=== PATIENT | female | born 1965 | race Caucasian/White ===

== ENCOUNTER 2017-06-08 00:44 | Inpatient (IN) | payer OTHER ==
[~2017-06-08] VITALS: Ht 172.7 cm; Wt 79.4 kg
--- NOTE | ~2017-06-08 | ER ---
PATIENT'S NAME: VALERIO HERRERA [facility] AGE: 51 Y [address] ROOM: [place] [address] LOCATION: [employer] ADMIT DATE: 06/08/2017 ER/Outpatient Report DISCHARGE DATE: FAMILY PHYSICIAN: PHYSICIAN, NO ATTENDING PHYSICIAN: Brayan Fields HISTORY OF PRESENT ILLNESS: This patient is a 51-year-old female, who was up at [facility] to detox. They do not detox, so she was sent here to the emergency department to be admitted for alcohol detox and further evaluation treatment as needed. Dr. Geller, hospitalist was here in the emergency room and saw the patient and admitted the patient to hospital. I did not see the patient, but did order medical clearance, lab studies. Also ordered IV banana bag 1 L in the emergency department, then normal saline at 150 mL an hour. Zofran 4 mg IV in the emergency room for nausea and vomiting. Protonix 40 mg IV in the emergency room. The patient will be admitted to the hospital for alcohol detox. IMPRESSION: 1. Acute alcohol intoxication and alcohol abuse. 2. Suicidal ideation. 3. Palpitations. 4. Anxiety, depression, sadness. MD AL CARDENAS/modl /[id number] d: 06/08/17131 t: 06/08/17 1809, OUTPATIENT REPORT
--- NOTE | ~2017-06-08 | HP ---
[facility] AGE[facility] 51 Y [address] ROOM: [place] [address] LOCATION: [facility]PCU ADMIT DATE: 06/08/2017 History & Physical DISCHARGE DATE: FAMILY PHYSICIAN: PHYSICIAN, NO ATTENDING PHYSICIAN: SID HERNANDEZ DATE OF SERVICE: CHIEF COMPLAINT: Alcohol intoxication. HISTORY OF PRESENT ILLNESS: A 51-year-old lady with a past medical history of heavy alcohol abuse, had been sober for 3 years, relapsed 3 weeks ago and had been drinking 1 pint of [place] since then. She presented to [facility] to seek help and she was found to be acutely alcohol intoxicated and she was transferred here for further care. On my encounter, her mood is very labile. She is saying that she wanted to quit and she is afraid that she will go into bad withdrawal. She does not complain of any suicidal ideation, but she said that she is sad. She does not have any chest pain, any shortness of breath, any headache, trouble breathing, any trouble swallowing, abdominal pain, burning on urination, constipation, diarrhea, PND, orthopnea. REVIEW OF SYSTEMS: All other systems reviewed and were negative except what is mentioned in the HPI. ALLERGIES: NO KNOWN DRUG ALLERGIES. PAST MEDICAL HISTORY: Hypertension. HOME MEDICATIONS: Lisinopril. SOCIAL HISTORY: Heavy alcohol use. One pint of [place] for the last 3 weeks. FAMILY HISTORY: Negative for coronary artery disease or diabetes. PHYSICAL EXAMINATION: VITAL SIGNS: Blood pressure 126/77, saturating 93%, afebrile. GENERAL: In mild acute distress due to labile mood. Alert and oriented x3. PATIENT'S NAME: JAVIER [facility] AGE: 51 Y [address] ROOM: [place] [address] LOCATION: GPCU ADMIT DATE: 06/08/2017 History & Physical DISCHARGE DATE: FAMILY PHYSICIAN: PHYSICIAN, NO ATTENDING PHYSICIAN: SID HERNANDEZ HEENT: Head atraumatic, normocephalic. Eyes: Nonicteric. No pallor. Oropharynx moist mucous membranes. CARDIOVASCULAR: S1 and S2. No murmurs, gallops, or rubs. LUNGS: Clear to auscultation bilaterally. ABDOMEN: Soft, nontender, nondistended. Bowel sounds present. EXTREMITIES: No clubbing, cyanosis, or edema. PSYCH: Labile mood and speech. NEUROLOGIC: Cranial nerves II through XII intact. No motor or sensory deficit. MUSCULOSKELETAL: No muscle tenderness or joint swelling noted. LABORATORY DATA: Lab work done in the emergency department was impressive for low potassium which was 2.3 and a creatinine of 1.3. Bicarb was also elevated at 33. Urinalysis showed positive leukocytes and positive white count. ASSESSMENT AND PLAN: 1. Alcohol intoxication. 2. Acute kidney injury. 3. Hypokalemia. 4. Elevated liver enzymes. We are going to admit this lady. Provide her with intravenous fluids with multivitamins. Provide supportive care. Watch for withdrawal. Replace potassium. Monitor creatinine which appears to be prerenal. Urine is suggestive of acute cystitis, but she does not have any complaints at this point, so we will just watch for now. She wishes to be DNR/DNI. MD CELIA ROSENBERG/willian /[id number] D: [id number] T: [id number] HISTORY & PHYSICAL
--- NOTE | ~2017-06-08 | DS ---
PATIENT'S NAME: VALERIO HERRERA [facility] AGE: 51 Y [address] ROOM: [id number] [place], [place] [address] LOCATION: GPCU ADMIT DATE: 06/08/2017 Discharge Summary DISCHARGE DATE: 06/11/2017 FAMILY PHYSICIAN: PHYSICIAN, NO ATTENDING PHYSICIAN: Miroslava Geller ADDENDUM: BRIEF HISTORY: The patient was unable to go home yesterday because of inability to pay for her scripts, she became emotionally labile, and she was tachycardiac to about 110 to 120. I felt that she would not do well if she went home last night. she said she has eaten today, we will replace her potassium after she had a level of 3.1 this morning with K-Dur 40 mEq x2 tablets, magnesium 400 mg p.o., and Neutra-Phos packet. Her phosphorus was still somewhat low at 2.1. MEDICATIONS: 1. Multiple vitamin 1 tab daily. 2. Thiamine 100 mg p.o. daily. 3. Ativan 1 mg p.o. every 8 hours p.r.n. anxiety or withdrawal. 4. Amlodipine 2.5 mg p.o. q.h.s. 5. Folic acid 1 mg p.o. daily. 6. Lisinopril 20 mg p.o. daily. 7. Magnesium oxide 40 mg p.o. b.i.d. I have reviewed her meds with her and told her to prioritize her expenses. She will follow up with her sponsor and PCP as per prior dictation. she is in good condition at this time, less than 30 minutes spent on discharge process today. TAL BARBOSA MD LM/willian /[id number] d: 06/12/17130 t: 06/14/17 185, DISCHARGE SUMMARY
--- NOTE | ~2017-06-08 | DS ---
PATIENT'S NAME: VALERIO MILLER [facility] AGE: 51 Y [address] ROOM: [place] [address] LOCATION: GPCU ADMIT DATE: 06/08/2017 Discharge Summary DISCHARGE DATE: 06/10/2017 FAMILY PHYSICIAN: PHYSICIAN, NO ATTENDING PHYSICIAN: Miroslava Geller PRINCIPAL DISCHARGE DIAGNOSIS: Alcohol intoxication. SECONDARY DIAGNOSES: 1. Alcohol withdrawal. 2. Hypokalemia. 3. Hypophosphatemia. 4. Hypertension. 5. Elevated liver enzymes. CONSULTATIONS: None. COMPLICATIONS: None. PROCEDURES: None. BRIEF HISTORY: Ms. Miller is a 51-year-old female who presented to [facility] on the for acute care and she was noted to be intoxicated. She was referred to the emergency room for acute care here. In the emergency room, she was found to have labile mood seeking care for potential withdrawal of alcohol. She denied suicidal ideation on admission, but did admit to some sadness. She was admitted for further evaluation and management of acute alcohol intoxication and potential withdrawal. She was monitored with CIWA protocol and given Ativan. She last received Ativan at 11:30 last night and this was given last IV around 3 o'clock yesterday. She has had CIWA score low enough not to require any Ativan all day, but she just looked a little bit anxious now and I am going to give her a dose of p.o. Ativan now. She had a low phosphorus with low potassium earlier today, which has been repleted with IV K-Phos and she is ambulating better and she has eaten twice today. She believes she will be stable if she goes home now, she has support at home and she is able to eat. She told me of her plan to attend daily AA meetings and go to counseling at [facility] and to have close contact with her AA sponsor. She does have hypertension. She has been treated with an MO inhibitor. Blood pressure was still high earlier today. I will start her on amlodipine. PATIENT'S NAME: VALERIO MILLER [facility] AGE: 51 Y [address] ROOM: [place] [address] LOCATION: GPCU ADMIT DATE: 06/08/2017 Discharge Summary DISCHARGE DATE: 06/10/2017 FAMILY PHYSICIAN: PHYSICIAN, NO ATTENDING PHYSICIAN: Miroslava Geller INSTRUCTIONS AT DISCHARGE: She was instructed to eat at least 4 ounces of protein 4 times a day. She should see her PCP within three days, [facility] Exercise as tolerated yet, but I am recommending she walk 30 minutes a day to help with her underlying anxiety disorder. MEDICATIONS AT THE TIME OF DISCHARGE: 1. Pepcid 20 mg p.o. twice daily. 2. Folic acid 1 mg p.o. daily. 3. Lisinopril 20 mg p.o. daily. 4. Magnesium oxide 400 mg p.o. twice a day. 5. Multiple vitamin 1 p.o. daily. 6. Thiamin 100 mg p.o. daily. 7. Ativan 1 mg p.o. every 8 hours p.r.n. withdrawal or anxiety. I am giving her a script for 20 pills and no refill. 8. Amlodipine 2.5 mg one p.o. every bedtime for hypertension. CONDITION AT DISCHARGE: Fair. TIME SPENT: Greater than 30 minutes in the discharge process. TAL BARBOSA MD LM/willian /[id number] d: 06/11/17 0200 t: 06/14/17 1848, DISCHARGE SUMMARY
[2017-06-08 01:24] LABS: BASOPHIL % 0.8 %; EOSINOPHIL # 0.1 K/uL (0.0-0.5); EOSINOPHIL % 1.4 %; HEMATOCRIT 37.8 % (33.0-46.0); HEMOGLOBIN 13.6 g/dL (10.0-15.0); IMMATURE GRANULOCYTE % 0.4 %; LYMPHOCYTE # 2.8 K/uL (0.8-4.0); LYMPHOCYTE % 58.3 %; MCH 34.9 pg (27.0-34.0); MCV 96.9 fl (83.0-98.0); MONOCYTE # 0.6 K/uL (0.0-1.0); MPV 8.3 fl (9.4-12.4); NEUTROPHIL # (ANC) 1.3 K/uL (1.8-7.8); NEUTROPHIL % 27.1 %; NRBC % 0 /100WBC (0-0.00); PLATELET COUNT 118 K/uL (150-450); RDW-CV 14.4 % (11.9-14.6); WBC 4.8 K/uL (4.0-11.0)
[2017-06-08 01:25] LABS: BILIRUBIN URINE NEGATIVE (NEGATIVE); BLOOD URINE 150 /UL (NEGATIVE); COLOR URINE YELLOW (YELLOW); GLUCOSE URINE NEGATIVE (NEGATIVE); KETONE URINE NEGATIVE (NEGATIVE); LEUKOCYTES URINE 100 /UL (NEGATIVE); NITRITE URINE NEGATIVE (NEGATIVE); PROTEIN URINE 100 mg/dL (NEGATIVE); SPEC GRAVITY URINE 1.015 (1.003-1.035); TURBIDITY URINE 3+ (CLEAR); UROBILINOGEN URINE 1 mg/dL (NORMAL)
[2017-06-08 01:35] LABS: BACTERIA URINE MANY (NEGATIVE); HYALINE CAST URINE 0-2 #/LPF (NEGATIVE)
[2017-06-08 01:41] LABS: AMPHETAMINE NEGATIVE (NEGATIVE); BARBITURATE NEGATIVE (NEGATIVE); COCAINE NEGATIVE (NEGATIVE); OPIATES NEGATIVE (NEGATIVE)
[2017-06-08 01:45] LABS: ALBUMIN 3.2 gm/dL (3.5-5.0); ALK PHOS 68 IU/L (33-138); ALT 54 IU/L (12-78); AST 106 IU/L (10-40); BLOOD UREA NITROGEN 9 mg/dL (6-24); CALCIUM 8.1 mg/dL (8.5-10.5); CHLORIDE 93 mMol/L (96-110); CO2 33 mMol/L (22-32); CREATININE 1.3 mg/dL (0.5-1.1); SODIUM 140 mMol/L (135-145); TOTAL BILIRUBIN 0.5 mg/dL (0.0-1.5); TOTAL PROTEIN 7.4 g/dL (6.0-8.4)
[2017-06-08 01:46] LABS: ANION GAP 16.3 (10.0-19.0)
[2017-06-08 01:48] LABS: POTASSIUM 2.3 mMol/L (3.7-5.1)
[2017-06-08] MEDS ORDERED: PRINIVIL (ZESTR20 MG PO (03:14)
[2017-06-08 04:46] LABS: HEMATOCRIT 33.6 % (33.0-46.0); HEMOGLOBIN 11.8 g/dL (10.0-15.0); MCH 34.7 pg (27.0-34.0); MCHC 35.1 gm/dL (32.0-36.5); MCV 98.8 fl (83.0-98.0); MPV 8.8 fl (9.4-12.4); RBC 3.4 M/uL (3.50-5.50); RDW-CV 14.6 % (11.9-14.6); WBC 4.5 K/uL (4.0-11.0)
[2017-06-08 04:57] LABS: ANION GAP 17.7 (10.0-19.0); CALCIUM 7.5 mg/dL (8.5-10.5); CREATININE 0.9 mg/dL (0.5-1.1); PHOSPHORUS 3.1 mg/dL (2.5-4.9)
[2017-06-08 04:59] LABS: POTASSIUM 2.7 mMol/L (3.7-5.1)
--- NOTE | 2017-06-08 05:15 | NUR ---
Patient arrived to floor at 0305 from ER. Patient's daughter had brought her mother to [facility] for alcohol detoxing, and subsequently brought to our ER. VSS on admission. 1L O2, NS infusing to R)AC. Patient is A/O x3. Moderatly anxious and states she is beginning to have numbness to fingers from the withdrawal. States depression with suicidal thoughts, MD is aware. Patient has recently began drinking 1 pint of whiskey/daily for 2 weeks. Very worried that she cannot stop drinking. 1 mg Ativan given. Monitoring CIWA score. Stable at this time.
--- NOTE | 2017-06-08 16:50 | NUR ---
Significant Event: A/OX3, VSS ON 1L PER NC. PT. VERY SLEEPY THROUGHOUT SHIFT AND HAS SLEPT MOST OF IT, WILL WAKE UP WHEN ASSESSED. CIWA SCORES HAVE BEEN 7 TO 12, 1mg OF ATIVAN GIVEN @ EACH ASSESSMENT EXCEPT FOR LAST ASSESSMENT 2mg WAS GIVEN FOR A CIWA SCORE OF 12, REASSESSMENT 1HR LATER CIWA WAS DOWN TO A 7. PT. GETS UP 1 ASSIST TO BATHROOM, VERY UNSTEADY & DIZZY AT TIMES. NO PAIN. IV TO R)AC HAS NS @ 150mL/HR. PT. HAS TAKEN ALL PO MEDS TODAY, STARTED ON HOME DOSE OF LISINOPRIL. 60meq OF KCL GIVEN TODAY D/T K+ LEVEL OF 2.7, RECHECK 1HR POST MED WAS 3.2, GAVE ADDITIONAL DOSE OF 60meq PER ORDER. PT. HAS NO SUICIDAL THOUGHTS. Follow up: CONTINUE WITH POC.
[2017-06-09 05:25] LABS: BASOPHIL % 0.8 %; EOSINOPHIL # 0.2 K/uL (0.0-0.5); EOSINOPHIL % 5.3 %; HEMATOCRIT 31.7 % (33.0-46.0); HEMOGLOBIN 10.9 g/dL (10.0-15.0); IMMATURE GRANULOCYTE % 0.3 %; LYMPHOCYTE # 1.2 K/uL (0.8-4.0); LYMPHOCYTE % 32.4 %; MCH 34.5 pg (27.0-34.0); MCHC 34.4 gm/dL (32.0-36.5); MCV 100.3 fl (83.0-98.0); MONOCYTE # 0.4 K/uL (0.0-1.0); MONOCYTE % 10.8 %; MPV 8.5 fl (9.4-12.4); NEUTROPHIL # (ANC) 1.9 K/uL (1.8-7.8); NEUTROPHIL % 50.4 %; NRBC % 0 /100WBC (0-0.00); PLATELET COUNT 71 K/uL (150-450); RBC 3.16 M/uL (3.50-5.50); RDW-CV 14.2 % (11.9-14.6); WBC 3.8 K/uL (4.0-11.0)
[2017-06-09 05:42] LABS: MAGNESIUM 1.5 mg/dL (1.8-2.6)
[2017-06-09 05:43] LABS: ALBUMIN 2.5 gm/dL (3.5-5.0); ALK PHOS 51 IU/L (33-138); ALT 37 IU/L (12-78); ANION GAP 11.4 (10.0-19.0); AST 54 IU/L (10-40); BLOOD UREA NITROGEN 7 mg/dL (6-24); CHLORIDE 108 mMol/L (96-110); CO2 25 mMol/L (22-32); CREATININE 0.6 mg/dL (0.5-1.1); POTASSIUM 3.4 mMol/L (3.7-5.1); SODIUM 141 mMol/L (135-145); TOTAL PROTEIN 5.7 g/dL (6.0-8.4)
[2017-06-09 05:45] LABS: CALCIUM 6.7 mg/dL (8.5-10.5); TOTAL BILIRUBIN 1.1 mg/dL (0.0-1.5)
--- NOTE | 2017-06-09 05:45 | NUR ---
SIGNIFICANT EVENT: A/O X 3. UP TO BATHROOM WITH 1 ASSIST. PATIENT HAS BEEN PRETTY TEARY TONIGHT AND VERY ANXIOUS. CWA SCORES OF 12-16 ALL NOC. ATIVAN IV GIVEN X 3 WITH THE LAST DOSE AT 0315 AND PO 1 MG X 1. VSS ON RA WITH SATS IN THE 90'S.
--- NOTE | 2017-06-09 16:04 | NUR ---
Significant Event: A/OX3, VSS ON RA. PT. GETS UP SBA TO BATHROOM, MOVING MUCH BETTER TODAY. PT. TEARFUL AND CRYING A BIT ON/OFF THROUGHOUT SHIFT, CALLED DAUGHTER WITH NO ANSWER. PT. JUST WANTS DETOX TO BE OVER. PO/IV ATIVAN GIVEN X4, CIWA SCORES HAVE BEEN FROM 9-13 THROUGHOUT DAY. PT. SLEEPS MOST OF SHIFT, EAR PLUGS IN. R)AC HAS NS @ 150mL/HR. ATE BREAKFAST BUT NO LUNCH. 40mmol OF NA-PHOS GIVEN X1, 2gm OF MAG SULFATE GIVEN X1. POSSIBLE D/C TO HOME IN AM. Follow up: CONTINUE WITH POC.
--- NOTE | 2017-06-10 05:14 | NUR ---
Significant event: A/O x 3. Up with SBA to the bathroom. CWA score 16-5 gave ativan x 2 last at 2200. showered and ate Dinner last night. She states she would like to go home today. No c/o pain throughout shift. Follow-up: possile discharge home
--- NOTE | 2017-06-10 10:57 | NUR ---
Introduced self and CM role to Vero. Vero tells me that she just recently moved here to [place] and lives alone, but has good support from her daughter. She plans on returning home when she is ready to dismiss. Vero goes to the [facility] here in [place] to be seen for any of her medical needs. She says she is usually seen by Guerita Del Cid at the clinic. She is only on one medication at home for her BP and she gets that filled at [facility] as it is on the $4 Medication list. She denies having any issues filling her medications. She is listed as self pay, I did give her the financial assistance application to fill out once she has been dismissed. We talked about her issues when it came to her alcoholism. She does admit to having a problem. Currently attends AA Meetings here in [place] on a weekly basis at 1200 at the [facility]. She also has a sponsor, Cathi, who she turns to for a lot of support and sees' on a regular basis. I did provide her with a list of resources for her alcohol issues. Denies wanting a CD eval or wanting to go to inpatient alcohol treatment of any kind. Offered to make her a counseling appt. for her to see someone upon dismissal but she denied wanting this stating,"I will just follow up with Cathi and continue to do my AA meetings, I don't want to see a counselor at this point, but I will refer back to what you gave me if I change my mind." Denies any other questions, needs or concerns at this time. Plan is home upon dismissal. States that her daughter or someone will be able to pick her up when she goes home. She is hoping to go home today. CM to continue to follow and assist.
[2017-06-10 12:01] LABS: ANION GAP 13.1 (10.0-19.0); CHLORIDE 110 mMol/L (96-110); CO2 20 mMol/L (22-32); CREATININE 0.6 mg/dL (0.5-1.1); MAGNESIUM 1.5 mg/dL (1.8-2.6); POTASSIUM 3.1 mMol/L (3.7-5.1); SODIUM 140 mMol/L (135-145)
[2017-06-10 12:06] LABS: BLOOD UREA NITROGEN 3 mg/dL (6-24); CALCIUM 6.9 mg/dL (8.5-10.5); PHOSPHORUS 1.6 mg/dL (2.5-4.9)
--- NOTE | 2017-06-10 16:42 | NUR ---
Significant Event: A/OX3, VSS ON RA. NO PAIN. CIWA SCORES HAVE BEEN 2-5 ALL DAY. 2gm OF MAG & 30mmoL OF K-PHOS GIVEN TODAY X1. IV TO R)AC. PT. ATE ALL OF LUNCH. UP SBA TO BATHROOM. PT. TO DISMISS TO HOME LATER WHEN K-PHOS IS DONE AND COMES BACK AROUND. Follow up: CONTINUE WITH POC.
[2017-06-11 03:46] LABS: ALBUMIN 2.9 gm/dL (3.5-5.0); ANION GAP 11.1 (10.0-19.0); BLOOD UREA NITROGEN 3 mg/dL (6-24); CALCIUM 7.7 mg/dL (8.5-10.5); CHLORIDE 109 mMol/L (96-110); CO2 24 mMol/L (22-32); CREATININE 0.6 mg/dL (0.5-1.1); PHOSPHORUS 2.1 mg/dL (2.5-4.9); POTASSIUM 3.1 mMol/L (3.7-5.1); SODIUM 141 mMol/L (135-145)
--- NOTE | 2017-06-11 04:41 | NUR ---
Kylee&Tasneem3. GABE 16 @ 0300. GAVE 2MG IV ATIVAN. IV TO R) WHIT SL. WAS SUPPOSED TO D/C 06/10 HS BUT COULD NOT PAY FOR MEDS AT PHARMACY. CARE MANAGEMENT TO SEE TODAY AND THEN DISMISS TO HOME. REPORTS NO APPETITE. UP 1A TO BATHROOM.
--- NOTE | 2017-06-11 11:40 | NUR ---
Consult from to see Vero as she couldn't pay for her medications upon dismissal. I reviewed her discharge medications, most of them were over the counter medications so we wouldn't pay for those. The ones at weren't OTC could be found at [facility]. I phoned the [facility], talked with Meri. Per Meri, Garrick' Lisinopril 10 MG was $4.00, Amlodipine 2.5 MG was $20.14, and the Lorazapam 1 mg was $9.47, total for cost of medications was under $34.00. Went into her room and talked with her about his. Let her know that I had no funds to pay for her medications, encouraged her to see if her daughter could help her cover the costs this time or if she had another friend that might be able to loan her the medications. She says that she will ask them and see and thinks that they will probably be able to do that. I questioned her on how she pays for her rent or her alcohol when she isn't in here as she says she has no money. She says she has some saved up and has enough to pay for "those things". Encouraged her to try to cover the cost of her medications herself or have her daughter help her. She is also supposed to follow up with her provider at the [facility] within 3 days of dismissing to I encouraged her to ask them if they had any free medications they could give her. She states she will do this. CM to continue to follow and assist.
--- NOTE | 2017-06-11 16:01 | NUR ---
Significant Event: PT A&O x3. VSS, on room air. PT sleepy t/o shift, stated she didn't sleep good last night. Tolerating regular diet. Ativan given x1 per PT request, stating she was anxious. PT up ad kathleen in room. Voiding without difficulties. Follow up: DC to home katie
[2017-06-11] MEDS ORDERED: FOLIC ACID1 MG PO (17:24)
[2017-06-11] MEDS ORDERED: MAG-OX-400(241400 MG PO (17:25)
[2017-06-11] MEDS ORDERED: THERAGRAN-M1 TAB PO (17:27)
[2017-06-11] MEDS ORDERED: THIAMINE HCL100 MG PO (17:28)
[2017-06-11] MEDS ORDERED: ATIVAN 1 MG1 MG PO (17:29)
[2017-06-11] MEDS ORDERED: NORVASC2.5 MG PO (17:31)
== END 2017-06-11 18:15 | disposition disaster alternative care site (69) | DRG 683 ==
LOC: GMED 00:44 → GPCU 02:05
PROVIDERS: Emergency Medicine; Family Medicine; Internal Medicine; ADMIT Internal Medicine
DX: N17.9 Acute kidney failure, unspecified (principal); F10.239 Alcohol dependence with withdrawal, unspecified; E83.39 Other disorders of phosphorus metabolism; I10 Essential (primary) hypertension; E87.6 Hypokalemia; R74.8 Abnormal levels of other serum enzymes; Z66 Do not resuscitate
CPT/HCPCS: C9113; G0480; J2060; J2405; J3411; J3475; J7030; J7050

== ENCOUNTER 2017-07-14 11:45 | Emergency (ER) | payer SELFPAY ==
--- NOTE | ~2017-07-14 | ER ---
PATIENT'S NAME: VALERIO HERRERA [facility] AGE: 51 Y [address] ROOM: [place] [address] LOCATION: ED ADMIT DATE: 07/14/2017 ER/Outpatient Report DISCHARGE DATE: 07/14/2017 FAMILY PHYSICIAN: PHYSICIAN, NO ATTENDING PHYSICIAN: Brayan Fields Time of Arrival: 1147 hours. Time of Exam: 1147 hours. CHIEF COMPLAINT: Alcohol withdrawal. HISTORY OF PRESENT ILLNESS: The patient states that she has had problems with alcoholism for the last month. She was here in the hospital a month ago for withdrawal. She states she feels like she has her life back in order, however, whenever she does not drink, then she has problems with shakes and weakness and not able to walk. She states on Saturday she started to wean herself off the alcohol. She had really a bad day Saturday where she just shook and could hardly get out of bed because she was so weak. Saturday, she did drink a shot of hard alcohol and that did help. She states that she has had approximately half a pint of alcohol per day on a regular basis. Drinks primarily vodka, last drink today at 10 o'clock. She also is concerned because she feels chills and has a rapid heart rate. Has not been nauseated. No vomiting. No problems urinating. Having normal bowel movements. Denies having any chest pain or shortness of breath. ALLERGIES: PENICILLIN. CURRENT MEDICATIONS: Lisinopril. PAST MEDICAL HISTORY: Hypertension and chronic back problems. PAST SURGERIES: Back surgery. SOCIAL HISTORY: She denies use of tobacco or drugs, but does drink vodka on a daily basis. REVIEW OF SYSTEMS: All negative other than those mentioned in the HPI. PATIENT'S NAME: VALERIO HERRERA [facility] AGE: 51 Y [address] ROOM: [place] [address] LOCATION: ED ADMIT DATE: 07/14/2017 ER/Outpatient Report DISCHARGE DATE: 07/14/2017 FAMILY PHYSICIAN: PHYSICIAN, NO ATTENDING PHYSICIAN: Brayan Fields PHYSICAL EXAMINATION: VITAL SIGNS: She weighed 75.4 kg. Blood pressure is 128/79, pulse of 87, respirations 18, temperature of 96.2 tympanic, and O2 saturation is 97% on room air. GENERAL: She is awake, alert, and oriented x4. SKIN: [place], warm, and dry. RESPIRATIONS: Even and nonlabored. HEENT: Pupils are equal and reactive to light. Extraocular movements are intact. LUNGS: Lung sounds are clear throughout. HEART: Regular rate and rhythm. ABDOMEN: Soft, nondistended. Bowel sounds are present. She moves all extremities strongly and equally. EMERGENCY ROOM COURSE: Saline lock was initiated. Lab work was drawn. CBC is within normal limits. Chem Panel: Sodium is 138, potassium is 2.3, chloride is 97, glucose is 96, BUN is 11, creatinine of 1. Her magnesium was 1.2. CPK is 355, CK-MB is 1.1, and troponin is negative. Tylenol level is negative. Salicylate level is negative. Alcohol is 0.112. EKG was completed, it shows a sinus rhythm. The patient was given lorazepam 1 mg IV. A banana bag with 40 mEq of KCl was initiated to infuse over 4 hours. She was also given 40 mEq of KCl orally. Monitor showed sinus rhythm throughout the ER stay. No ectopy is noted. Discussed with the patient the need to stay in the hospital for rechecking of her potassium to make sure that it has continued to improve. She states that she does not feel as though she can stay at this time. She has commitments at home with family and is scheduled to go to tomorrow morning and has a job interview. She says she does have an appointment with Colin Casey on Saturday to talk with Magali Holland. Again, I reiterated the importance of monitoring her heart. IMPRESSION: Hypokalemia due to EtOH abuse. PLAN: The patient refuses to be hospitalized. AMA form is completed. Instructions were reviewed with the patient. She was given a prescription for potassium. She verbalizes understanding. KATY TORRES APRN FOR MD ROMAN CARDENAS/willian PATIENT'S NAME: VALERIO HERRERA [facility] AGE: 51 Y [address] ROOM: [place] [address] LOCATION: [facility] ADMIT DATE: 07/14/2017 ER/Outpatient Report DISCHARGE DATE: 07/14/2017 FAMILY PHYSICIAN: MARIAN GARCIA ATTENDING PHYSICIAN: Brayan Fields /[id number] d: t: 07/14/17 2039, OUTPATIENT REPORT
[~2017-07-14 11:45] MED LIST: ATIVAN 1 MG1 MG PO; FOLIC ACID1 MG PO; MAG-OX-400(241400 MG PO; NORVASC2.5 MG PO; PRINIVIL (ZESTR20 MG PO; THERAGRAN-M1 TAB PO; THIAMINE HCL100 MG PO
[2017-07-14 12:30] LABS: BASOPHIL # 0.1 K/uL (0.0-0.2); EOSINOPHIL # 0.1 K/uL (0.0-0.5); EOSINOPHIL % 1.1 %; HEMOGLOBIN 14.7 g/dL (10.0-15.0); IMMATURE GRANULOCYTE % 0.4 %; LYMPHOCYTE # 1.4 K/uL (0.8-4.0); LYMPHOCYTE % 26.2 %; MCV 98.3 fl (83.0-98.0); MONOCYTE # 0.6 K/uL (0.0-1.0); MONOCYTE % 11.1 %; MPV 9.3 fl (9.4-12.4); NEUTROPHIL # (ANC) 3.1 K/uL (1.8-7.8); NEUTROPHIL % 60.2 %; NRBC % 0 /100WBC (0-0.00); RDW-CV 14.3 % (11.9-14.6); WBC 5.2 K/uL (4.0-11.0)
[2017-07-14 12:31] LABS: HEMATOCRIT 39.9 % (33.0-46.0); MCH 36.2 pg (27.0-34.0); MCHC 36.8 gm/dL (32.0-36.5); PLATELET COUNT 101 K/uL (150-450); RBC 4.06 M/uL (3.50-5.50)
[2017-07-14 12:48] LABS: ALBUMIN 3.4 gm/dL (3.5-5.0); ALK PHOS 57 IU/L (33-138); ALT 68 IU/L (12-78); AST 122 IU/L (10-40); BLOOD UREA NITROGEN 11 mg/dL (6-24); CHLORIDE 97 mMol/L (96-110); CO2 24 mMol/L (22-32); CPK 355 IU/L (21-215); SODIUM 138 mMol/L (135-145)
[2017-07-14 12:49] LABS: ANION GAP 19.3 (10.0-19.0); CALCIUM 7.4 mg/dL (8.5-10.5); POTASSIUM 2.3 mMol/L (3.7-5.1)
[2017-07-14 12:50] LABS: MAGNESIUM 1.2 mg/dL (1.8-2.6)
== END 2017-07-14 17:48 | disposition disaster alternative care site (69) ==
LOC: GMED 11:45
PROVIDERS: Nurse Practitioner Family
DX: E87.6 Hypokalemia (principal); F10.10 Alcohol abuse, uncomplicated; Y90.0 Blood alcohol level of less than 20 mg/100 ml; I10 Essential (primary) hypertension; Z88.0 Allergy status to penicillin; Z79.899 Other long term (current) drug therapy
CPT/HCPCS: G0480; J2060; J3411; J3480; J7030